=== PATIENT | male | born 1975 | race Caucasian/White ===

== ENCOUNTER 2023-08-22 09:59 | Emergency (ER) | payer BC ==
[~2023-08-22] VITALS: Ht 180.3 cm; Wt 126.6 kg
[2023-08-22 10:01] VITALS: BP 144/74; PULSE 76; RESP 16; TEMP 97.5; O2SAT 96
[2023-08-22 10:35] VITALS: TEMP 97.5
[2023-08-22] MEDS ORDERED: PRED20TA5 PO (11:48)
[2023-08-22] MEDS ORDERED: IBUP-2213 PO (11:48)
[2023-08-22] MEDS ORDERED: ATA25 PO (11:48)
[2023-08-22 12:17] VITALS: BP 102/53; PULSE 69; RESP 17; O2SAT 96
== END 2023-08-22 12:17 | disposition home or self-care (01) ==
LOC: MED 09:59
DX: R05.9 Cough, unspecified (principal); F41.9 Anxiety disorder, unspecified; R07.9 Chest pain, unspecified; E11.9 Type 2 diabetes mellitus without complications; I10 Essential (primary) hypertension; E78.00 Pure hypercholesterolemia, unspecified; Z98.890 Other specified postprocedural states
CPT/HCPCS: 71045; 99283